=== PATIENT | female | born 1930 | race Caucasian/White ===

== ENCOUNTER 2017-01-18 15:03 | Emergency (ER) | payer MEDICARE, BC ==
--- NOTE | 2017-01-18 16:16 | ED ---
Adult Trauma - HPI Summary HPI Summary: 86F presents with upper back pain. She states she was in a hurry to go down her stairs and slipped down the stairs landing on her upper back. She denies any head injury. She is not on blood thinners. no LOC. She denies any abdominal pain, n/v. She states pain radiates to lateral aspect of chest wall. She states she has chest wall pain and denies any chest pain or SOB. She states the posterior aspect of her shoulder also hurt but she has full ROM of her shoulders. She denies any loss of bowel or bladder or saddle anaesthesia. She denies any other pain. She denies any neck pain. She gets around without assistance at home. - History of Current Complaint Chief Complaint: EDBackInjuryPain Stated Complaint: FALL DOWN STEPS BACK AND CHEST PAIN Time Seen by Provider: 01/18/17 15:50 Pain Intensity: 5 - Allergy/Home Medications Allergies/Adverse Reactions: Allergies Allergy/AdvReac Type Severity Reaction Status Date / Time Tetanus Toxoids Allergy Severe Hives Verified 03/09/16 10:27 Penicillin V AdvReac Intermediate Upset Verified 03/09/16 10:27 [From Penicillin VK stomach/diarreha Potassium] RED SNAPPER Allergy Severe HIVES, Uncoded 03/09/16 10:27 DAVEY, DELIROUS, HIGH FEVER Mycins AdvReac Intermediate Stomach Uncoded 03/09/16 10:27 Upsets PMH/Surg Hx/FS Hx/Imm Hx Endocrine/Hematology History: Reports: Hx Thyroid Disease, Hx Anemia - A CHILD Cardiovascular History: Reports: Hx Hypertension - on meds, Hx Syncope Respiratory History: Reports: Hx Sleep Apnea - CPAP user, non-compliant "hates it" GI History: Reports: Hx Gastroesophageal Reflux Disease - OCCASIONAL - NO MEDS, Hx Irritable Bowel - PROBLEMS WITH DIARRHEA WITH SOME FOODS, Other GI Disorders - HX OF COLITIS A CHILD/ Musculoskeletal History: Reports: Hx Arthritis - BILATERAL HANDS AND LEFT HIP Denies: Hx Rheumatoid Arthritis, Hx Osteoporosis Sensory History: Reports: Hx Cataracts - BILATERAL, Hx Contacts or Glasses - GLASSES Denies: Hx Hearing Aid Opthamlomology History: Reports: Hx Cataracts - BILATERAL, Hx Contacts or Glasses - GLASSES Neurological History: Reports: Hx Migraine - VISUAL MIGRAINES, Other Neuro Impairments/Disorders - meniere's disease - Cancer History Cancer Type, Location and Year: left nose basal cell - Surgical History Surgery Procedure, Year, and Place: Left nose basal cell carcinoma,, thryoidectomy, T&A appendectomy x2 Hx Anesthesia Reactions: No Infectious Disease History: No Infectious Disease History: Reports: Hx Hepatitis - A CHILD- NO PROBLEMS KNOW Denies: Traveled Outside the [place] in Last 30 Days - Family History Known Family History: Positive: Hypertension - Social History Alcohol Use: Weekly Alcohol Amount: 1 GLASS OF WINE DAY Substance Use Type: Reports: None Smoking Status (MU): Former Smoker Type: Cigarettes Length of Time of Smoking/Using Tobacco: SMOKED FROM AGE [age].STOPPED THEN SMOKED AGE [age] THEN STOPPED Have You Smoked in the Last Year: No Review of Systems Negative: Fever Negative: Chest Pain Negative: Shortness Of Breath Negative: Abdominal Pain Positive: Myalgia - upper back pain All Other Systems Reviewed And Are Negative: Yes Physical Exam Triage Information Reviewed: Yes Vital Signs On Initial Exam: Initial Vitals Temp Pulse Resp BP Pulse Ox 98.6 F 74 20 124/49 97 01/18/17 15:22 01/18/17 15:22 01/18/17 15:22 01/18/17 15:22 01/18/17 15:22 Vital Signs Reviewed: Yes Appearance: Positive: Well-Appearing Skin: Positive: Warm, Dry Head/Face: Positive: Normal Head/Face Inspection Eyes: Positive: Normal, EOMI, SHERRY, Conjunctiva Clear ENT: Positive: Normal ENT inspection, Pharynx normal, TMs normal Respiratory/Lung Sounds: Positive: Clear to Auscultation, Breath Sounds Present , Other - tenderness on lateral aspect of chest wall bilateral Cardiovascular: Positive: Normal, RRR Abdomen Description: Positive: Nontender, Soft Bowel Sounds: Positive: Present Musculoskeletal: Positive: Other - tenderness across upper back, no tenderness lower back on exam, full ROM shoulder, good pulses, neg SLR. - [place] Coma Scale Coma Scale Total: 15 Diagnostics - Vital Signs Vital Signs Temp Pulse Resp BP Pulse Ox 01/18/17 15:22 98.6 F 74 20 124/49 97 - Laboratory Lab Statement: Any lab studies that have been ordered have been reviewed, and results considered in the medical decision making process. - CT thoracic CT Interpretation: Positive (See Comments) - IMPRESSION: Compression fracture of approximately T4 age of which is undetermined but likely old since there is no perivertebral soft tissue swelling. Clinical correlation is suggested. No pneumothorax or pulmonary contusion is noted. Nodule in the right lower lobe measuring approximately 5 mm. In a low-risk patient no follow-up is required. In a high risk patient consideration should BE given toward 12 month follow-up. CT Interpretation Completed By: Radiologist lumbar CT Interpretation: Positive (See Comments) - IMPRESSION: Degenerative disc disease at L3-L4, L4-L5 with minimal broad-based protrusions. No fracture is identified. CT Interpretation Completed By: Radiologist Adult Trauma Course/Dx - Course Course Of Treatment: 86F presents with upper back pain. She states she was in a hurry to go down her stairs and slipped down the stairs landing on her upper back. She denies any head injury. She is not on blood thinners. no LOC. She denies any abdominal pain, n/v. She states pain radiates to lateral aspect of chest wall. She states she has chest wall pain and denies any chest pain or SOB. She states the posterior aspect of her shoulder also hurt but she has full ROM of her shoulders. She denies any loss of bowel or bladder or saddle anaesthesia. She denies any other pain. She denies any neck pain. on exam tenderness in upper thoracic region with tenderness on lateral aspect of chest wall, nontender lower back. chest pain does not seem to be cardiac in nature had no pain prior to fall and states fells like just chest wall pain. CT thoracic and lumbar no acute fracture, advised to follow up with primary. patient understands and agrees with plan. - Diagnoses Differential Diagnosis/HQI/PQRI: Positive: Contusion(s), Fracture, Sprain Provider Diagnoses: Back pain Discharge - Discharge Plan Condition: Good Disposition: HOME Referrals: Mayur Smith MD [Primary Care Provider] - Additional Instructions: Take aspirin or Tylenol for pain Apply heat or ice Follow up with primary within 5 days Return to ED if develop any new or worsening symptoms
--- NOTE | 2017-01-18 17:35 | RAD ---
Indication: Chest wall pain. Back injury. CT of the chest was obtained in the axial plane. Sagittal and coronal reconstructed images were obtained. Inferior thyroid lobes are unremarkable. No mediastinal or hilar adenopathy is noted. Heart is of normal size without evidence of pericardial effusion. No pleural fluid is identified. The trachea and major bronchi appear patent. The lung muro demonstrates emphysematous changes. There is a nodule in the right lower lobe measuring 5 mm. No prior study is available for comparison. Some atelectasis is noted in the left base. No alveolar consolidation is noted. There is compression of approximately T4 age of which is undetermined however no evidence of perivertebral hematoma is noted. No fracture is identified. The visualized abdominal organs demonstrate hepatic cyst in the left lobe of liver measuring at least 6 cm. IMPRESSION: Compression fracture of approximately T4 age of which is undetermined but likely old since there is no perivertebral soft tissue swelling. Clinical correlation is suggested. No pneumothorax or pulmonary contusion is noted. Nodule in the right lower lobe measuring approximately 5 mm. In a low-risk patient no follow-up is required. In a high risk patient consideration should BE given toward 12 month follow-up.
--- NOTE | 2017-01-18 17:46 | RAD ---
Indication: Back pain. CT of the lumbar spine was obtained in the axial plane. Sagittal and coronal reconstructed images were obtained. The vertebral bodies appear normal in height. No evidence of compression fracture is noted. Diffuse osteopenia is noted. At L5-S1 there is no disc protrusion. No central or foraminal stenosis is noted. No fracture is identified. At L4-L5 there is degenerative disc disease. Vacuum disc phenomenon is noted. Facet arthropathy is noted. No central or foraminal stenosis is noted. At L3-L4 degenerative disc disease with broad-based protrusion flattens the thecal sac. No central or foraminal stenosis is noted. At L2-L3 and L1-L2 the disc space appears normal. Transverse processes and spinous processes are unremarkable with no fracture. IMPRESSION: Degenerative disc disease at L3-L4, L4-L5 with minimal broad-based protrusions. No fracture is identified.
[2017-01-18 18:55] VITALS: BP 112/49
== END 2017-01-18 18:54 | disposition home or self-care (01) ==
LOC: ED 15:03
DX: M54.9 Dorsalgia, unspecified (principal); R07.9 Chest pain, unspecified
CPT/HCPCS: 71250; 72131; 99281

== ENCOUNTER 2019-02-04 23:40 | Emergency (ER) | payer MEDICARE, OTHER, BC ==
--- OUTSIDE RECORDS SUMMARY | 2019-02-05 00:02 | XMS REPORT | Continuity of Care Document ---
:1930 External Reference #:[id number] Author Name Kacey Carlos N.P. (transmitted by agent of provider Amarilis Mercedes) Address [address] [place] [address] Care Team Providers Name Role Phone Mayur Smith MD - Endocrinology, Care Team Information Public Address System Mechanic Diabetes & Metabolism Problems Active Problems Provider Date Peripheral venous insufficiency Liane Oseguera MD, [facility], [facility] Onset: 12/2017 Social History Type Date Description Comments Sex Unknown Tobacco Use Start: Unknown End: Former Cigarette Smoker Quit in s Unknown Smoking Status Reviewed: 01/30/19 Former Cigarette Smoker Quit in ETOH Use Denies alcohol use ETOH Use Rarely consumes alcohol Tobacco Use Start: Unknown End: Patient is a former Unknown smoker Recreational Drug Use Denies Drug Use Exercise Type/Frequency Exercises sporadically Allergies, Adverse Reactions, Alerts Active Allergies Reaction Severity Comments Date Amoxicillin Contact dermatitis Moderate 06/29/2015 Penicillin 07/01/2015 Amlodipine edema Mild 12/03/2015 Hydrochlorothiazide itching/rash??? 07/10/2017 Medications Active Medications SIG Qnty Indications Ordering Date Provider Amlodipine Besylate 1 by mouth every 60tabs Cirilo Gutierrez 08/30/2017 2.5mg day Ge Gipson Tablets Lisinopril 1 by mouth every 90tabs Cirilo Gutierrez 04/21/2017 5mg Tablets day Ge Gipson Echinacea Herb prn Unknown 10/31/2016 400mg Capsules Nitro-Dur 1 tab to skin 90units Cirilo Gutierrez 12/22/2015 0.4mg/HR every 12 hours, Ge Gipson Patches 24HR on in the in the morning, off at night Aspir-81 1 by mouth every 100tabs Cirilo Gutierrez 09/21/[address] michel Gipson M.D. Levothyroxine Sodium 1 daily x 6 Unknown days/week 1/2 75mcg Tablets tab on Monday Ammonium Lactate apply to Unknown 12% affected area Lotion once daily Preservision Areds i tab by mouth Unknown once a day Capsules Rosuvastatin Calcium 1 tablet by 90tabs E78.5 Kacey CherylNahomy Carlos, 5mg mouth every N.P. Tablets night Vitamin D 1 by mouth every Unknown (Cholecalciferol) day 400Unit Capsules Triamcinolone apply daily to Unknown Acetonide arms and ankles Immunizations Description No Information Available Vital Signs Date Vital Result Comment 01/30/2019 9:36am Height 65 inches 5'5" Weight 124.00 lb without shoes Heart Rate 56 /min BP Systolic Sitting 168 mmHg Lue (Regular cuff) BP Diastolic Sitting 80 mmHg Lue (Regular cuff) BP Systolic Standing 170 mmHg BP Diastolic Standing 68 mmHg BMI (Body Mass Index) 20.6 kg/m2 Ejection Fraction 60-65% Echocardiogram 10/10/2017 11/21/2018 3:32pm Height 65 inches 5'5" Weight 124.50 lb without shoes Heart Rate 80 /min BP Systolic Sitting 160 mmHg Lue (regular cuff) BP Diastolic Sitting 70 mmHg Lue (regular cuff) BP Systolic Standing 140 mmHg BP Diastolic Standing 70 mmHg BMI (Body Mass Index) 20.7 kg/m2 Ejection Fraction 60-65% 10/10/2017 Echocardiogram Results Test Acquired Date Facility Test Result H/L Range Note Lipid Panel - 12/10/2018 [facility] Creatine 55 U/L Normal 10- 223 1, [address] [address] Kinase(CK) [place] [address] [phone] Comp Metabolic 12/10/2018 [facility] Sodium 136 mmol/L Normal 135-[address] [place] [address] [phone] Potassium 5.0 mmol/L Normal 3.5-5.0 Chloride 103 mmol/L Normal 101-111 Co2 Carbon Dioxide 27 mmol/L Normal 22-32 Anion Gap 6 mmol/L Normal 2-11 Glucose 96 mg/dL Normal 70-100 Blood Urea Nitrogen 28 mg/dL High 6-24 Creatinine 1.16 mg/dL High 0.51-0.95 BUN/Creatinine Ratio 24.1 High 8-20 Calcium 9.5 mg/dL Normal 8.6-10.3 Total Protein 6.7 g/dL Normal 6.4-8.9 Albumin 4.4 g/dL Normal 3.2-5.2 Globulin 2.3 g/dL Normal 2-4 Albumin/Globulin Ratio 1.9 Normal 1-3 Total Bilirubin 0.40 mg/dL Normal 0.2-1.0 Alkaline Phosphatase 63 U/L Normal 34-104 Alt 14 U/L Normal 7-52 Ast 16 U/L Normal 13-39 Egfr Non- 44.0 >60 Egfr 53.2 >60 3 Lipid Profile 12/10/2018 [facility] Triglycerides 58 mg/dL 4 (Trig/Chol/HDL) [address] [place] [address] [phone] Cholesterol 150 mg/dL 5 HDL Cholesterol 67.8 mg/dL 6 LDL Cholesterol 71 mg/dL 7 1 [id number] 2 [id number] 3 Because ethnic data is not always readily available, this report includes an eGFR for both -Americans and non- Americans. The National Kidney Disease Education Program (NKDEP) does not endorse the use of the MDRD equation for patients that are not between the ages of 18 and 70, are , have extremes of body size, muscle mass, or nutritional status, or are non- or non-. According to the National Kidney Foundation, irrespective of diagnosis, the stage of the disease is based on the level of kidney function: Stage Description GFR(mL/min/1.73 m(2)) 1 Kidney damage with normal or decreased GFR 90 2 Kidney damage with mild decrease in GFR 60-89 3 Moderate decrease in GFR 30-59 4 Severe decrease in GFR 15-29 5 Kidney failure <15 (or dialysis) 4 Desirable: <150 Borderline High: 150-199 High: 200-499 Very High: >500 5 Desirable: <200 Borderline High: 200-239 High: >239 6 Low: <40 Desirable: 40-60 High: >60 7 Desirable: <100 Near Optimal: 100-129 Borderline High: 130-159 High: 160-189 Very High: >189 Procedures Date Code Description Status 11/21/2018 08102 EKG Tracing & Interpretation Completed Medical Devices Description No Information Available Encounters Type Date Location Provider Dx Diagnosis Office Visit 01/30/2019 [facility] Kacey Carlos, E78.5 Hyperlipidemia, 10:00a N.P. unspecified I35.1 Nonrheumatic aortic (valve) insufficiency I10 Essential (primary) hypertension R00.1 Bradycardia, unspecified R07.89 Other chest pain Office Visit 11/21/2018 [facility] Cirilo Gutierrez E78.5 Hyperlipidemia, 3:40p [facility] Ge Gipson unspecified I35.1 Nonrheumatic aortic (valve) insufficiency I10 Essential (primary) hypertension R07.89 Other chest pain Assessments Date Code Description Provider 01/30/2019 E78.5 Hyperlipidemia, unspecified Kacey Carlos, N.P. 01/30/2019 I35.1 Nonrheumatic aortic (valve) insufficiency Kacey Carlos, N.P. 01/30/2019 I10 Essential (primary) hypertension Kacey Carlos, N.P. 01/30/2019 R00.1 Bradycardia, unspecified Kacey Carlos, N.P. 01/30/2019 R07.89 Chest discomfort Kacey Carlos, N.P. 11/21/2018 E78.5 Hyperlipidemia, unspecified Cirilo Gipson M.D. 11/21/2018 I35.1 Nonrheumatic aortic (valve) insufficiency Cirilo Gipson M.D. 11/21/2018 I10 Essential (primary) hypertension Cirilo Gipson M.D. 11/21/2018 R07.89 Chest discomfort Cirilo Gipson M.D. Plan of Treatment 01/30/2019 - Kacey Carlos, N.P.E78.5 Hyperlipidemia, unspecifiedFollow up:2019 OV JFMRecommendations:Lipids at goal; Continue rosuvastatin 5mg [id number] Nonrheumatic aortic (valve) [id number] Essential (primary) hypertensionRecommendations:Take BP daily at least 1-2hr after medications. Call if top number is consistently > 145 We will check in with you in 2 weeks to see what BP readings are. Goal 130s/70s. If necessary we could increase lisinopril or amlodipine.R00.1 Bradycardia, [id number] Chest discomfort Functional Status Description No Information Available Mental Status Description No Information Available Referrals Description No Information Available
[2019-02-05 00:27] LABS: ABS Basophils 0.1 10^3/ul (0-0.2); ABS Eosinophils 0.2 10^3/ul (0-0.6); ABS Lymphocytes 0.7 10^3/ul (1.0-4.8); ABS Monocytes 0.6 10^3/ul (0-0.8); ABS Neutrophils 7.9 10^3/ul (1.5-7.7); Eosinophil % 2.4 %; Hematocrit 37 % (35-47); Lymphocyte % 7.3 %; Mean Corpuscular HGB Conc 33 g/dL (31-36); Mean Corpuscular Hemoglobin 27 pg (27-31); Mean Corpuscular Volume 82 fL (80-97); Mean Platelet Volume 8.5 fL (7.4-10.4); Nucleated Red Blood Cells % 0.1; Platelet Count 255 10^3/uL (150-450); Red Blood Count 4.54 10^6 /uL (3.70-4.87); Red Cell Distribution Width 15 % (10-15); White Blood Count 9.5 10^3/uL (3.5-10.8)
[2019-02-05 00:50] LABS: Albumin 4.1 g/dL (3.2-5.2); Albumin/Globulin Ratio 1.6 (1-3); BUN/Creatinine Ratio 29.2 (8-20); Calcium 9.3 mg/dL (8.6-10.3); EGFR African American 59.1 (>60); EGFR Non-African American 48.8 (>60); Globulin 2.5 g/dL (2-4); Potassium 3.7 mmol/L (3.5-5.0); Total Bilirubin 0.4 mg/dL (0.2-1.0); Total Protein 6.6 g/dL (6.4-8.9)
--- NOTE | 2019-02-05 00:53 | ED ---
Abdominal Pain/Female - HPI Summary HPI Summary: The patient isn 88 y/o F arriving by ambulance to [facility] with a chief complaint of upper abdominal pain onset around last night. She reports that the pain had a sudden onset while she was sitting at her computer last night. The abdominal pain, which is located across the upper abdomen in the RUQ, epigastric , and LUQ regions, is described as an uncomfortable pain that intermittently sharpens as it radiates around to the back. She was also experiencing pain in the left neck into the jaw, left arm pain, and interscapular pain. She denies any fever, nausea, vomiting, or diarrhea associated with the pain. Currently, her symptoms are rated 7/10 in severity as she is experiencing the abdominal pain. In the ambulance, she was administered NTG 1x to no relief of the pain. She notes that she used a NTG patch today, which she removed prior to the pain beginning. She also used ASA for the pain to no relief. She ate a dinner consisting of shrimp, couscous, and tea. PMHx: HTN, HLD, CAD, mitral valve prolapse, GERD, IBS, 2 sections, appendectomy, thyroidectomy, T&A. Former smoker, weekly EtOH, no substance use. Medications reviewed. Allergies noted. - History of Current Complaint Chief Complaint: EDGeneral Stated Complaint: ABDOMINAL PAIN PER EMS Time Seen by Provider: 02/05/19 00:05 Hx Obtained From: Patient Onset/Duration: Sudden Onset, Lasting Hours - since last night, Still Present Timing: Hours Severity Initially: Moderate Severity Currently: Moderate Pain Intensity: 7 Pain Scale Used: 0-10 Numeric Location: Discrete At: RUQ, Discrete At: LUQ Radiates: Yes Radiates to: Back Character: Sharp, Other: - discomfort when not at worst Aggravating Factor(s): Nothing Alleviating Factor(s): Nothing Associated Signs and Symptoms: Positive: Back Pain - interscapular. Negative: Fever, Nausea, Vomiting, Diarrhea Allergies/Adverse Reactions: Allergies Allergy/AdvReac Type Severity Reaction Status Date / Time Penicillins Allergy GI Upset Verified 02/04/19 23:51 tetanus toxoid, adsorbed Allergy Hives Verified 02/04/19 23:51 RED SNAPPER Allergy Severe HIVES, Uncoded 02/04/19 23:51 DAVEY, DELIROUS, HIGH FEVER Mycins AdvReac Intermediate Stomach Uncoded 02/04/19 23:51 Upsets PMH/Surg Hx/FS Hx/Imm Hx Endocrine/Hematology History: Reports: Hx Thyroid Disease, Hx Anemia - A CHILD Cardiovascular History: Reports: Hx Coronary Artery Disease, Hx Hypercholesterolemia, Hx Hypertension - on meds, Hx Syncope Denies: Hx Angina, Hx Myocardial Infarction, Hx Valvular Heart Disease Respiratory History: Reports: Hx Sleep Apnea - CPAP user, non-compliant "hates it" Denies: Hx Asthma, Hx Chronic Obstructive Pulmonary Disease (COPD) GI History: Reports: Hx Gastroesophageal Reflux Disease - OCCASIONAL - NO MEDS, Hx Irritable Bowel - PROBLEMS WITH DIARRHEA WITH SOME FOODS, Other GI Disorders - HX OF COLITIS A CHILD/ Musculoskeletal History: Reports: Hx Arthritis - BILATERAL HANDS AND LEFT HIP Denies: Hx Rheumatoid Arthritis, Hx Osteoporosis Sensory History: Reports: Hx Cataracts - BILATERAL, Hx Contacts or Glasses - GLASSES Denies: Hx Hearing Aid Opthamlomology History: Reports: Hx Cataracts - BILATERAL, Hx Contacts or Glasses - GLASSES Neurological History: Reports: Hx Migraine - VISUAL MIGRAINES, Other Neuro Impairments/Disorders - meniere's disease - Cancer History Cancer Type, Location and Year: left nose basal cell - Surgical History Surgical History: Yes Surgery Procedure, Year, and Place: Left nose basal cell carcinoma,, thryoidectomy, T&A appendectomy x2 Hx Anesthesia Reactions: No Infectious Disease History: No Infectious Disease History: Reports: Hx Hepatitis - A CHILD- NO PROBLEMS KNOW Denies: Traveled Outside the [place] in Last 30 Days - Family History Known Family History: Positive: Hypertension - Social History Alcohol Use: Weekly Alcohol Amount: 1 GLASS OF WINE DAY Hx Substance Use: No Substance Use Type: Reports: None Hx Tobacco Use: Yes Smoking Status (MU): Former Smoker Type: Cigarettes Length of Time of Smoking/Using Tobacco: SMOKED FROM AGE [age].STOPPED THEN SMOKED AGE [age] THEN STOPPED Have You Smoked in the Last Year: No Review of Systems - ROS Summary Review of Systems Summary: Home Medications Medication Instructions Recorded Confirmed Type Ascorbic Acid TAB* [Vitamin C 500 mg PO 1030 01/18/12 01/20/17 History TAB*] Calcium Carbonate-Vitamin D 1 tab PO 1030 01/18/12 01/20/17 History [Calcium 500 + D 500-125 mg-Unit] Gluc Dugan/Chondro Dugan A/Vit C/Mn 1 tab PO DAILY 01/18/12 01/20/17 History [Glucosamine Chondroitin Tab] Hydrochlorothiazide TAB* 12.5 mg PO QAM 01/18/12 01/20/17 History [Hydrodiuril TAB*] Levothyroxine TAB* [Synthroid 75 75 mcg PO SEE INSTRUCTIONS 01/18/12 01/20/17 History MCG TAB*] Lisinopril TAB* [Prinivil TAB 10 20 mg PO 1200 01/18/12 01/20/17 History MG*] Lactobacillus Acidophilus 1 cap PO 1100 08/10/12 01/20/17 History [Probiotic] Amlodipine Besylate [Amlodipine 2.5 mg PO 1200 02/23/16 01/20/17 History 2.5 mg tab] Nitroglycerin 0.4 MG/HR PATCH* 1 patch TRANSDERM DAILY 02/23/16 01/20/17 History [Nitroglycerin 10 MG PATCH*] Aspirin EC TAB* [Ecotrin EC TAB*] 325 mg PO DAILY 03/02/16 01/20/17 History Echinacea 400 mg PO DAILY PRN 01/19/17 01/20/17 History Fluocinonide 0.05% CREAM(NF) 1 applic TOPICAL SEE INSTRUCTIONS 01/19/17 History Acetaminophen [Tylenol 8 Hour] 650 mg PO Q8HR 01/20/17 01/20/17 History Negative: Fever Positive: Abdominal Pain - upper abd in RUQ, epigastrium, and LUQ. Negative: Vomiting, Diarrhea, Nausea Positive: Other - pain between the shoulder blades, left neck pain, left arm pain All Other Systems Reviewed And Are Negative: Yes Physical Exam - Summary Physical Exam Summary: General: Well-developed, Well-nourished elderly female. Moderate acute discomfort. HEENT: Normocephalic, Atraumatic. Eyes: Conjuctiva normal, PERRL. Ears: TMs within normal limits. Nares: (-) discharge, (-) erythema. Oropharynx: Clear, mucous membranes moist, (-) exudates. Neck: Soft, FROM, (-) lymphadenopathy, (-) thyromegaly, (-) JVD. Cardiovascular: Normal sinus rhythm, (-) murmur. Lungs: Clear to auscultation bilaterally (-) wheezes, (-) rales, (-) rhonchi. Abdomen: Soft, mild tenderness to palpation in the RUQ, LUQ, and epigastric regions, non-distended, (-) organomegaly, normal bowel sounds. Back: (-) CVA tenderness Extremities: No edema. Skin: Warm, dry, (-) rash. Neuro: Alert and oriented x3, no focal deficits. Psychiatric: Mildly anxious appearing but mood otherwise normal, affect normal. Triage Information Reviewed: Yes Vital Signs On Initial Exam: Initial Vitals Temp Pulse Resp BP Pulse Ox 98.8 F 73 18 186/61 97 02/04/19 23:43 02/04/19 23:43 02/04/19 23:43 02/04/19 23:43 02/04/19 23:43 Vital Signs Reviewed: Yes Procedures - Sedation Patient Received Moderate/Deep Sedation with Procedure: No Diagnostics - Vital Signs Vital Signs Temp Pulse Resp BP Pulse Ox 02/04/19 23:46 70 186/61 97 02/04/19 23:43 98.8 F 73 18 186/61 97 - Laboratory Lab Results: Lab Results 02/05/19 Range/Units 00:16 WBC 9.5 (3.5-10.8) 10^3/uL RBC 4.54 (3.70-4.87) 10^6 /uL Hgb 12.0 (12.0-16.0) g/dL Hct 37 (35-47) % MCV 82 (80-97) fL MCH 27 (27-31) pg MCHC 33 (31-36) g/dL RDW 15 (10-15) % Plt Count 255 (150-450) 10^3/uL MPV 8.5 (7.4-10.4) fL Neut % (Auto) 83.2 % Lymph % (Auto) 7.3 % Thayer % (Auto) 6.5 % Eos % (Auto) 2.4 % Baso % (Auto) 0.6 % Absolute Neuts (auto) 7.9 H (1.5-7.7) 10^3/ul Absolute Lymphs (auto) 0.7 L (1.0-4.8) 10^3/ul Absolute Monos (auto) 0.6 (0-0.8) 10^3/ul Absolute Eos (auto) 0.2 (0-0.6) 10^3/ul Absolute Basos (auto) 0.1 (0-0.2) 10^3/ul Absolute Nucleated RBC 0.0 10^3/ul Nucleated RBC % 0.1 Result Diagrams: 02/05/19 00:16 02/05/19 00:15 Lab Statement: Any lab studies that have been ordered have been reviewed, and results considered in the medical decision making process. - Radiology CXR Radiology Interpretation Completed By: ED Physician Summary of Radiographic Findings: No infiltrate. No pleural effusion. ED physician has reviewed and interpreted this imaging report. Pending official read. - EKG 2340 Cardiac Rate: NL - 76 BPM EKG Rhythm: Sinus Rhythm Summary of EKG Findings: EKG at 2340 reveals a normal sinus rhythm at 76 BPM. Left ventricular hypertrophy. Anterior ST elevation, probably due to LVH. No STEMI. This EKG was reviewed and interpreted by Dr. Titus. Re-Evaluation - Re-Evaluation First Eval Re-Evaluation Time: 04:03 Change: Improved Comment: I have discussed results with the patient and symptoms have resolved. Discussed symptoms that warrant immediate return to ED. Abdominal Pain Fem Course/Dx - Course Course Of Treatment: 88-year-old female with epigastric pain and chest pain. She states her pain has improved somewhat continues around the top of her abdomen into her back. Goes up into her top chest. Discussed her workup with her. No signs of heart damage at this time. Patient discharged home. Advised her to follow-up with her PCP in the morning. Follow-up sooner for any worsening symptoms. - Diagnoses Provider Diagnoses: Chest pain Discharge ED - Sign-Out/Discharge Documenting (check all that apply): Patient Departure - Patient will be discharged home. - Discharge Plan Condition: Stable Disposition: HOME Patient Education Materials: Chest Pain (DC) Referrals: Mayur Smith MD [Primary Care Provider] - 3 Days Additional Instructions: Please follow up with your primary care physician within three days. Please return to ED for any new or worsening symptoms. - Billing Disposition and Condition Condition: STABLE Disposition: Home - Attestation Statements Document Initiated by Scribe: Yes Documenting Scribe: Vale Ragsdale Provider For Whom Scribe is Documenting (Include Credential): Dr. Jodi Titus MD Scribe Attestation: Vale Galicia, scribed for Dr. Jodi Titus MD on 02/05/19 at 0543. Scribe Documentation Reviewed: Yes Provider Attestation: The documentation as recorded by the scribe, Vale Ragsdale accurately reflects the service I personally performed and the decisions made by me, Dr. Jodi Titus MD Status of Scribe Document: Viewed
[2019-02-05 01:10] LABS: INR 1.02 (0.82-1.09)
[2019-02-05 04:22] VITALS: BP 165/64
== END 2019-02-05 04:15 | disposition home or self-care (01) ==
LOC: ED 23:40
DX: R07.9 Chest pain, unspecified (principal); R10.10 Upper abdominal pain, unspecified; Z87.891 Personal history of nicotine dependence; E03.9 Hypothyroidism, unspecified; I25.10 Atherosclerotic heart disease of native coronary artery without angina pectoris; I10 Essential (primary) hypertension; K21.9 Gastro-esophageal reflux disease without esophagitis; E78.00 Pure hypercholesterolemia, unspecified; G47.30 Sleep apnea, unspecified; Z79.82 Long term (current) use of aspirin
CPT/HCPCS: 36415; 71045; 80053; 83605; 83880; 84484; 85025; 85379; 85610; 93005; 99284